=== PATIENT | female | born 1970 | race Caucasian/White ===

== ENCOUNTER 2024-11-19 09:58 | Day surgery (SDC) | payer BC ==
[2024-11-19] MEDS: Lactated Ringers 1,000 ML IV SCH (10:17)
[2024-11-19] MEDS ORDERED: fentaNYL 100 MCG/2 ML SDV ONE (10:56)
[2024-11-19] MEDS ORDERED: Midazolam 1 MG/ML 2 ML SDV ONE (10:57)
[2024-11-19] MEDS ORDERED: Propofol 200 MG/20 ML SDV ONE (10:57)
== END 2024-11-19 14:22 | disposition home or self-care (01) ==
LOC: JP.SDS 09:58
PROVIDERS: ATTEND Surgery
DX: K22.89 Other specified disease of esophagus (principal); K20.90 Esophagitis, unspecified without bleeding; E66.9 Obesity, unspecified
CPT/HCPCS: 00731; 43239; J2250; J2704; J3010; J7120

== ENCOUNTER 2025-01-22 07:28 | Emergency (ER) | payer BC, MEDICARE ==
[2025-01-22] MEDS: Bacitracin Oint 1 GM U/D Packet TOP ONE (09:12)
== END 2025-01-22 09:25 | disposition home or self-care (01) ==
LOC: JP.ED 07:28
DX: S80.01XA Contusion of right knee, initial encounter (principal); M17.11 Unilateral primary osteoarthritis, right knee; E11.9 Type 2 diabetes mellitus without complications; E03.9 Hypothyroidism, unspecified; E78.00 Pure hypercholesterolemia, unspecified; M19.90 Unspecified osteoarthritis, unspecified site; Z79.899 Other long term (current) drug therapy; Z88.0 Allergy status to penicillin; Z91.040 Latex allergy status; Z79.890 Hormone replacement therapy; Z90.49 Acquired absence of other specified parts of digestive tract; Z90.710 Acquired absence of both cervix and uterus; W19.XXXA Unspecified fall, initial encounter
CPT/HCPCS: 73562-26-RT; 73562-RT; 99283